=== PATIENT | female | born 1950 | race Caucasian/White ===

== ENCOUNTER 2017-12-09 19:31 | Emergency (ER) | payer OTHER ==
[~2017-12-09] VITALS: Ht 167.6 cm; Wt 87.7 kg
[2017-12-09 23:10] LABS: BASOPHIL (%) 0.5 % (0-1); EOSINOPHIL (%) 2.4 % (0-5); EOSINOPHIL COUNT 0.2 K/uL (0-0.3); HEMOGLOBIN 11.2 G/DL (11.9-15.5); IMMATURE GRANULOCYTE (%) 0.3 % (0.0-0.7); LYMPHOCYTE (%) 30.7 % (15-42); MCH 28.5 PG (29.0-34.0); MCV 89.1 FL (83-99); MONOCYTE (%) 9.3 % (3-12); MONOCYTE COUNT 0.6 K/uL (0-0.8); NEUTROPHIL (%) 56.8 % (45-76); NEUTROPHIL COUNT 3.8 K/uL (1.8-6.4); PLATELET COUNT 215 K/uL (156-360); RBC DIS.WIDTH-CV 13.8 % (11.8-14.6); RBC DIS.WIDTH-SD 45.3 % (39-53); RED BLOOD COUNT 3.93 M/uL (3.80-5.20); WHITE BLOOD COUNT 6.6 K/uL (4.1-10.2)
[2017-12-09 23:27] LABS: CHLORIDE 107 mEq/L (99-109); POTASSIUM 3.8 mEq/L (3.7-5.4); SODIUM 141 mEq/L (136-147)
[2017-12-09 23:28] LABS: GLUCOSE 116 mg/dL (70-99)
[2017-12-09 23:32] LABS: GFR ESTIMATE (CALCULATED) 58 mL/min/
[2017-12-09 23:33] LABS: UREA NITROGEN (BUN) 21 mg/dL (9-23)
[2017-12-09 23:35] LABS: CREATINE KINASE 93 IU/L (1-294)
[2017-12-10] MEDS ORDERED: VIBRAMYCIN100 MG PO (00:46)
[2017-12-10] MEDS ORDERED: NORCO 5/3251 TABLET PO (00:46)
[2017-12-10] MEDS ORDERED: MOTRIN600 MG PO (00:46)
[2017-12-10 01:00] VITALS: BP 110/54
== END 2017-12-10 01:01 | disposition home or self-care (01) ==
LOC: RME 19:31 → EME 19:31 → RME 12-10 01:01
PROVIDERS: Physician Assistant
DX: L03.116 Cellulitis of left lower limb (principal); E03.9 Hypothyroidism, unspecified; F41.9 Anxiety disorder, unspecified; Z87.891 Personal history of nicotine dependence
CPT/HCPCS: 73590; 80048; 82550; 83605; 85025; 87040; 93971; 99281; 99284